=== PATIENT | female | born 1965 | race Caucasian/White ===

== ENCOUNTER 2017-01-20 10:44 | Day surgery (SDC) | payer BC ==
[~2017-01-20] VITALS: Ht 172.7 cm; Wt 53.2 kg
[~2017-01-20 10:44] MED LIST changes: -BENADRYL25 M2 PO; -BRINTELLIX20 PO; -CEPHALEXIN500 M1 PO; -DEMADEX10 MG PO; -DESYREL 50MG50 MG PO; -ESTRACE 1MG1 MG/TAB PO; -LINZESS145CAP PO; -NORFLEX 10100 MG/TAB PO; -STADOL NASA25 MG/BOT NS; -TOPAMAX 100MG100 M1 PO; -ZESTRIL 5MG5 MG PO
[2017-01-20] MEDS ORDERED: STADOL NASA25 MG/BOT NS (11:37)
[2017-01-20] MEDS ORDERED: ESTRACE 1MG1 MG/TAB PO (11:41)
[2017-01-20] MEDS ORDERED: LINZESS145CAP PO (11:43)
[2017-01-20] MEDS ORDERED: BRINTELLIX20 PO (11:45)
[2017-01-20] MEDS ORDERED: DEMADEX10 MG PO (11:45)
[2017-01-20] MEDS ORDERED: DESYREL 50MG50 MG PO (11:46)
[2017-01-20] MEDS ORDERED: TOPAMAX 100MG100 M1 PO (11:47)
[2017-01-20] MEDS ORDERED: NORFLEX 10100 MG/TAB PO (11:47)
[2017-01-20] MEDS ORDERED: ZESTRIL 5MG5 MG PO (11:47)
[2017-01-20] MEDS ORDERED: BENADRYL25 M2 PO (11:48)
[2017-01-20 11:54] VITALS: BP 101/65; PULSE 69; TEMP 98.5
[2017-01-20 13:45] VITALS: BP 79/43; PULSE 52; TEMP 97.5
[2017-01-20 14:00] VITALS: BP 94/38; PULSE 54
[2017-01-20 14:15] VITALS: BP 92/43; PULSE 44
[2017-01-20 14:30] VITALS: BP 86/50; PULSE 47
[2017-01-20] MEDS ORDERED: CEPHALEXIN500 M1 PO (14:30)
== END 2017-01-20 15:05 | disposition home or self-care (01) ==
LOC: SDCO 10:44
DX: M25.122 Fistula, left elbow (principal)
CPT/HCPCS: J2250; J2405; J2704; J2765; J3010; J7120

== ENCOUNTER → 2017-01-20 | Outpatient (CLI) | payer BC ==
[~2017-01-20] MED LIST: ADDERALL20 MG PO; BENADRYL25 M2 PO; BRINTELLIX20 PO; CATAFLAM50 MG PO; CEPHALEXIN500 M1 PO; CYMBALTA 60MG60 MG PO; DEMADEX10 MG PO; DEMADEX5 MG PO; DESYREL 50MG50 MG PO; ESTRACE 1MG1 MG/TAB PO; GYNODIOL2 MG PO; LINZESS145CAP PO; NORFLEX 10100 MG/TAB PO; PROBIOTICA100 Millio PO; STADOL NASA25 MG/BOT NS; TOPAMAX 100MG100 M1 PO; VITAMIN D31 LIQ; ZESTRIL 5MG5 MG PO
== END ==
LOC: COL.LAB 14:29
DX: S51.002A Unspecified open wound of left elbow, initial encounter (principal)